=== PATIENT | female | born 1970 | race Caucasian/White ===

== ENCOUNTER 2017-11-04 10:06 | Emergency (ER) | payer OTHER, MEDICARE ==
[~2017-11-04] VITALS: Ht 162.6 cm; Wt 54.4 kg
[~2017-11-04 10:06] MED LIST: CALCIUM500 MG PO; CEPHALEXIN500 MG PO; MACROBID 100 M100 MG PO; MAGNESIUM OXID250 MG PO; METOPROLOL SUCC50 MG PO; OMEGA 3 1,0001 EACH PO; PROGESTERONE200 MG PO; TOPROL XL50 MG PO; VITAMIN D5000 UNIT PO
[2017-11-04] MEDS ORDERED: MULTI VITAMIN1 EACH PO (10:50)
[2017-11-04] MEDS ORDERED: EFFER-K 10 MEQ10 MEQ PO (10:50)
[2017-11-04] MEDS ORDERED: MAGNESIUM100 MG PO (10:51)
== END 2017-11-04 13:15 | disposition home or self-care (01) ==
LOC: ED 10:06
PROC: 2W3CX1Z Immobilization of Right Lower Arm using Splint (ICD-10-PCS; principal; 2017-11-04)
DX: S52.125A Nondisplaced fracture of head of left radius, initial encounter for closed fracture (principal); S52.124A Nondisplaced fracture of head of right radius, initial encounter for closed fracture; J45.909 Unspecified asthma, uncomplicated; Z87.442 Personal history of urinary calculi; Z87.891 Personal history of nicotine dependence; Z88.5 Allergy status to narcotic agent; Z88.2 Allergy status to sulfonamides; Z79.899 Other long term (current) drug therapy; W05.2XXA Fall from non-moving motorized mobility scooter, initial encounter
CPT/HCPCS: 29125; 73080; 73110; 99283

== ENCOUNTER 2023-06-08 20:33 | Emergency (ER) | payer OTHER ==
[~2023-06-08] VITALS: Ht 162.6 cm; Wt 65.0 kg
[~2023-06-08 20:33] MED LIST changes: +EFFER-K 10 MEQ10 MEQ PO; +IBU800 MG PO; +MAGNESIUM100 MG PO; +MULTI VITAMIN1 EACH PO; +REGLAN10 MG PO; +ULTRAM50 MG PO; +VITAMIN B122500 MCG PO
[2023-06-08 20:54] LABS: BILIRUBIN, URINE NEGATIVE (negative); BLOOD/HGB, URINE MODERATE (Negative); KETONE, URINE NEGATIVE (Negative); LEUK ESTERASE, URINE LARGE (negative); NITRITE, URINE NEGATIVE (negative); PH, URINE 6.5 (5-7)
[2023-06-08] MEDS ORDERED: DRONABINOL2.5 MG PO (21:00)
[2023-06-08 21:02] LABS: EPITHELIAL CELLS, URINE SQUAMOUS 1+ /lpf (0-1+)
[2023-06-08 21:03] LABS: BACTERIA, URINE 2+ /hpf (negative); CASTS, URINE NONE SEEN \\lpf; CRYSTALS, URINE NONE SEEN (0-1+); REFLEX CULTURE, URINE Yes (No); WHITE BLOOD CELLS, URINE >50 /HPF (0-5)
[2023-06-08] MEDS ORDERED: MACROBID 100 M100 MG PO (21:34)
[2023-06-08 21:51] VITALS: BP 137/81
== END 2023-06-08 21:54 | disposition home or self-care (01) ==
LOC: ED 20:33
PROVIDERS: Family Medicine
DX: N39.0 Urinary tract infection, site not specified (principal); J45.909 Unspecified asthma, uncomplicated; Z87.891 Personal history of nicotine dependence; Z88.0 Allergy status to penicillin; Z88.2 Allergy status to sulfonamides; Z88.5 Allergy status to narcotic agent; Z79.899 Other long term (current) drug therapy
CPT/HCPCS: 81001; 87088; 99283

== ENCOUNTER 2024-02-01 19:58 | Emergency (ER) | payer OTHER ==
[~2024-02-01] VITALS: Ht 162.6 cm; Wt 63.0 kg
[~2024-02-01 19:58] MED LIST changes: +DRONABINOL2.5 MG PO
[2024-02-01] MEDS ORDERED: NEURONTIN100 MG PO (20:11)
[2024-02-01 20:20] LABS: BILIRUBIN, URINE NEGATIVE (negative); BLOOD/HGB, URINE MODERATE (Negative); KETONE, URINE NEGATIVE (Negative); LEUK ESTERASE, URINE LARGE (negative); NITRITE, URINE NEGATIVE (negative)
[2024-02-01 20:28] LABS: BACTERIA, URINE 1+ /hpf (negative); CASTS, URINE NONE SEEN \\lpf; COLLECTION TYPE, URINE CLEAN CATCH; CRYSTALS, URINE NONE SEEN (0-1+); EPITHELIAL CELLS, URINE NONE SEEN /lpf (0-1+); REFLEX CULTURE, URINE Yes (No); WHITE BLOOD CELLS, URINE >50 /HPF (0-5)
[2024-02-01] MEDS ORDERED: CEPHALEXIN500 M1 PO (20:51)
[2024-02-01] MEDS ORDERED: CEPHALEXIN MONOHYDRATE 500 MG HOME.PACK PO ONE (21:00)
[2024-02-01 21:07] VITALS: BP 129/77
== END 2024-02-01 21:09 | disposition home or self-care (01) ==
LOC: ED 19:58
PROVIDERS: Internal Medicine
DX: N39.0 Urinary tract infection, site not specified (principal); Z87.891 Personal history of nicotine dependence; Z88.0 Allergy status to penicillin; Z88.2 Allergy status to sulfonamides; Z88.5 Allergy status to narcotic agent; Z79.899 Other long term (current) drug therapy
CPT/HCPCS: 81001; 87088; 87186; 99283; A9270

== ENCOUNTER 2024-07-25 17:42 | Emergency (ER) | payer OTHER ==
[~2024-07-25] VITALS: Ht 162.6 cm; Wt 64.9 kg
[~2024-07-25 17:42] MED LIST changes: +CEPHALEXIN500 M1 PO; +NEURONTIN100 MG PO
[2024-07-25] MEDS ORDERED: ITRACONAZOLE100 MG PO (19:19)
[2024-07-25] MEDS ORDERED: ESTRADIOL1 EAC8 TD (19:19)
[2024-07-25] MEDS ORDERED: KETOROLAC TROMETHAMINE 15 MG/ML VIAL IV ONE (19:30)
[2024-07-25] MEDS ORDERED: ondansetron HCL 4 MG/2 ML VIAL IV PRN (19:30)
[2024-07-25 19:36] LABS: BASOPHILS 0.8 % (0-2); EOSINOPHILS 2.3 % (0-6); HEMATOCRIT 40.3 % (35.0-50.0); HEMOGLOBIN 13.8 g/dL (12.0-18.0); MCHC 34.2 g/dl (30-36); MCV 90.8 fl (81-99); MONOCYTES 7.2 % (0-12); NEUTROPHILS 56.7 % (39-80); PLATELET COUNT 251 K/uL (140-440); RBC 4.44 M/ul (4.3-5.7)
[2024-07-25 19:57] LABS: ALBUMIN 3.9 g/dL (3.4-5.0); ALBUMIN/GLOBULIN RATIO 1.05 (1.1-2.4); ANION GAP 11.8 (7-21); BILIRUBIN, TOTAL 0.4 ng/dL (0.2-1.0); BUN/CREATININE RATIO 24.67 (6.0-28.6); CALCIUM 9.3 mg/dL (8.5-10.1); CREATININE, SERUM 0.77 mg/dL (0.55-1.02); POTASSIUM 3.8 mmol/L (3.5-5.1); PROTEIN, TOTAL 7.6 g/dL (6.4-8.2)
[2024-07-25] MEDS ORDERED: SODIUM CHLORIDE 0.9% 1,000 ML IV PRN (20:00)
[2024-07-25] MEDS ORDERED: TAMSULOSIN HCL 0.4 MG CAP PO ONE (20:45)
[2024-07-25 21:28] LABS: BILIRUBIN, URINE NEGATIVE (negative); BLOOD/HGB, URINE NEGATIVE (Negative); KETONE, URINE NEGATIVE (Negative); LEUK ESTERASE, URINE NEGATIVE (negative); NITRITE, URINE NEGATIVE (negative); PH, URINE 5.5 (5-7)
[2024-07-25 21:34] VITALS: BP 123/91
== END 2024-07-25 21:41 | disposition home or self-care (01) ==
LOC: ED 17:42
PROVIDERS: Internal Medicine
DX: R10.9 Unspecified abdominal pain (principal); N20.0 Calculus of kidney; I48.91 Unspecified atrial fibrillation; M81.0 Age-related osteoporosis without current pathological fracture; J45.909 Unspecified asthma, uncomplicated; D68.9 Coagulation defect, unspecified; Z87.442 Personal history of urinary calculi; Z87.891 Personal history of nicotine dependence; Z88.0 Allergy status to penicillin; Z88.5 Allergy status to narcotic agent; Z88.2 Allergy status to sulfonamides; Z79.899 Other long term (current) drug therapy
CPT/HCPCS: 36415; 74176; 80053; 81003; 85025; 96374; 99284-25; J1885; J7030